=== PATIENT | female | born 1980 | race Caucasian/White ===

== ENCOUNTER 2019-03-03 20:06 | Emergency (ER) | payer MEDICAID ==
[2019-03-03] MEDS: LIDOCAINE 2% (MDV) 20 ML INJ INJ (21:50)
[2019-03-03] MEDS: IBUPROFEN 600 MG TAB PO (21:50)
== END 2019-03-04 00:10 | disposition home or self-care (01) ==
LOC: FTE 03-04 00:10
DX: L03.031 Cellulitis of right toe (principal); E11.9 Type 2 diabetes mellitus without complications; I10 Essential (primary) hypertension
CPT/HCPCS: 10060; 73660; 99283-25

== ENCOUNTER 2019-05-04 16:56 | Emergency (ER) | payer MEDICAID | END 2019-05-04 19:05 | disposition home or self-care (01) | LOC: FTE 19:05 | DX: J32.9 Chronic sinusitis, unspecified (principal); I10 Essential (primary) hypertension | CPT/HCPCS: 99283 ==